=== PATIENT | male | born 1975 | race Caucasian/White ===

== ENCOUNTER → 2023-05-16 14:32 | Outpatient (REF) | payer OTHER, SELFPAY | LOC: RAD 14:32 | PROVIDERS: ATTENDING PHYSICIAN Physician Assistant Medical | DX: M10.9 Gout, unspecified (principal) | CPT/HCPCS: 73630 ==

== ENCOUNTER → 2023-07-08 06:51 | Outpatient (REF) | payer OTHER, SELFPAY | LOC: PAVMRI 06:51 | PROVIDERS: ATTENDING PHYSICIAN Student in an Organized Health Care Education/Training Program; FAMILY PHYSICIAN Physician Assistant Medical | DX: M79.672 Pain in left foot (principal); M20.10 Hallux valgus (acquired), unspecified foot; M20.40 Other hammer toe(s) (acquired), unspecified foot | CPT/HCPCS: 73718 ==

== ENCOUNTER → 2024-04-01 07:25 | Outpatient (REF) | payer OTHER, SELFPAY | LOC: RAD 07:25 | PROVIDERS: ATTENDING PHYSICIAN Nurse Practitioner Family | DX: R09.89 Other specified symptoms and signs involving the circulatory and respiratory systems (principal); R58 Hemorrhage, not elsewhere classified; R25.2 Cramp and spasm | CPT/HCPCS: 93922; 93971 ==